=== PATIENT | male | born 1955 | race Two or more races ===

== ENCOUNTER 2024-01-15 19:23 | Inpatient (IN) | payer MEDICAID, OTHER ==
[~2024-01-15] VITALS: Ht 170.2 cm; Wt 100.0 kg
[2024-01-15 19:52] LABS: Basophils # (auto) 0 10 ^3/uL (0-0.2); Basophils % (auto) 0.5 % (0.0-2.0); Eosinophils # (auto) 0.1 10 ^3/uL (0-0.8); Eosinophils % (auto) 1.5 % (0.0-7.0); Hematocrit 44.4 % (41.0-53.0); Hemoglobin 14.7 g/dL (13.5-17.5); Lymphocytes # (auto) 2.4 10 ^3/uL (0.4-5.4); Lymphocytes % (auto) 42.7 % (10.0-50.0); Mean Corpuscular Hemoglobin 29.1 pg (28.0-32.0); Mean Corpuscular Hgb Conc. 33.2 g/dL (32.0-36.0); Mean Corpuscular Volume 87.7 fL (80.0-100.0); Monocytes # (auto) 0.5 10 ^3/uL (0-1.3); Neutrophils # (auto) 2.6 10 ^3/uL (1.6-8.6); Neutrophils % (auto) 46.3 % (37.0-80.0); Nucleated Red Blood Cells % 0.1 %; Red Blood Cells 5.06 10^6/uL (4.5-5.90); White Blood Cell 5.5 10^3/uL (4.4-10.8)
[2024-01-15 20:17] LABS: Alanine Aminotransferase 32 U/L (7-40); Albumin 4.1 g/dL (3.2-4.8); Alkaline Phosphatase 151 U/L (46-116); Anion Gap 9 (5-15); Aspartate Aminotransferase 47 U/L (13-40); BUN/Creatinine Ratio 7.2 (10.0-20.0); Bilirubin, Total 0.6 mg/dL (0.2-1.0); Blood Urea Nitrogen 6 mg/dL (9-23); Calcium 9.3 mg/dL (8.7-10.4); Carbon Dioxide 21 mmol/L (20-30); Chloride 101 mmol/L (98-107); Glucose 263 mg/dL (74-106); Potassium 3.2 mmol/L (3.5-5.1); Sodium 131 mmol/L (136-145); Total Protein 7.5 g/dL (5.7-8.2)
[2024-01-15 20:45] LABS: Blood Alcohol 572.4 mg/dL (<10)
[2024-01-15 21:09] LABS: Amphetamine Screen, Urine Neg (NEGATIVE); Barbiturate Scree,Urine Neg (NEGATIVE); Benzodiazephine Screen, Urine Pos (NEGATIVE); Cannabinoid Screen, Urine Neg (NEGATIVE); Cocaine Screen, Urine Neg (NEGATIVE); Opiate Scree,Urine Neg (NEGATIVE); Phencyclidine Screen, Urine Neg (NEGATIVE)
[2024-01-15 22:00] VITALS: RESP 10; O2SAT 97
[2024-01-16] MEDS ORDERED: ONDANSETRON HCL 4 MG/2 ML VIAL IV PRN (00:15)
[2024-01-16] MEDS ORDERED: DEXTROSE (50%) 50ML SYRG IV PRN (00:15)
[2024-01-16] MEDS ORDERED: chlordiazePOXIDE HCL 25 MG CAP PO PRN (00:15)
[2024-01-16] MEDS ORDERED: traMADol HCL 50 MG TAB PO PRN (00:15)
[2024-01-16] MEDS: ACCU-CHEK COMFORT CURVE STRIP VI SCH (06:27)
[2024-01-16] MEDS: InsuLIN REG 1unit/0.01ml Soln (100units/ml) SC SCH (06:29)
[2024-01-16 07:20] VITALS: PULSE 90; RESP 18; O2SAT 100
[2024-01-16] MEDS: SPIRONOLACTONE 25 MG TAB PO SCH (09:57)
[2024-01-16] MEDS: LACTULOSE 20Gm/30ML SOLN PO SCH (09:57)
[2024-01-16] MEDS: LOSARTAN POTASSIUM 25 MG TAB PO SCH (10:03)
[2024-01-16] MEDS: POTASSIUM CHL 20 Meq TABLET PO ONE (15:21)
[2024-01-16] MEDS: TAMSULOSIN HYDROCHLORIDE 0.4 MG CAP PO SCH (18:02)
[2024-01-16] MEDS: FOLIC ACID 1 MG, MAGNESIUM SULF SDV 50% 8 MEQ, MULTIPLE VITAMIN 10 ML, THIAMINE INJ 100... INJ SCH (18:06)
[2024-01-17 06:38] LABS: Alanine Aminotransferase 30 U/L (7-40); Albumin 3.9 g/dL (3.2-4.8); Alkaline Phosphatase 163 U/L (46-116); Anion Gap 8 (5-15); Aspartate Aminotransferase 44 U/L (13-40); BUN/Creatinine Ratio 7.8 (10.0-20.0); Bilirubin, Total 0.7 mg/dL (0.2-1.0); Blood Urea Nitrogen 12 mg/dL (9-23); Calcium 9.4 mg/dL (8.7-10.4); Carbon Dioxide 22 mmol/L (20-30); Chloride 105 mmol/L (98-107); Glucose 261 mg/dL (74-106); Magnesium 1.5 mg/dL (1.6-2.6); Potassium 4.4 mmol/L (3.5-5.1); Sodium 135 mmol/L (136-145); Total Protein 7.3 g/dL (5.7-8.2)
[2024-01-17 06:59] LABS: Basophils # (auto) 0 10 ^3/uL (0-0.2); Basophils % (auto) 0.4 % (0.0-2.0); Eosinophils # (auto) 0 10 ^3/uL (0-0.8); Eosinophils % (auto) 0.7 % (0.0-7.0); Hematocrit 45.1 % (41.0-53.0); Hemoglobin 14.6 g/dL (13.5-17.5); Lymphocytes % (auto) 20.9 % (10.0-50.0); Mean Corpuscular Hemoglobin 28.7 pg (28.0-32.0); Mean Corpuscular Hgb Conc. 32.4 g/dL (32.0-36.0); Mean Corpuscular Volume 88.4 fL (80.0-100.0); Monocytes # (auto) 0.6 10 ^3/uL (0-1.3); Monocytes % (auto) 13.4 % (0.0-12.0); Neutrophils # (auto) 3.1 10 ^3/uL (1.6-8.6); Neutrophils % (auto) 64.6 % (37.0-80.0); Nucleated Red Blood Cells % 0.2 %; Red Cell Distribution Width 15.7 % (11.8-14.3); White Blood Cell 4.9 10^3/uL (4.4-10.8)
[2024-01-17 07:30] VITALS: PULSE 92; RESP 12; O2SAT 98
[2024-01-17] MEDS: SODIUM CHLORIDE 0.9% 1,000 ML IV SCH (08:45)
[2024-01-17] MEDS: SODIUM CHLORIDE 0.9% 1,000 ML IV ONE (08:45)
[2024-01-17] MEDS: cloNIDine HCL 0.1 MG TAB ONE (18:13)
[2024-01-17] MEDS: ACETAMINOPHEN 325 MG TAB PO PRN (18:13)
[2024-01-17] MEDS: cloNIDine HCL 0.1 MG TAB PO PRN (18:13)
[2024-01-17 19:43] VITALS: PULSE 86; RESP 17; O2SAT 98
[2024-01-17 22:54] VITALS: PULSE 85
[2024-01-17 23:22] VITALS: BP 157/79; PULSE 83; RESP 18; TEMP 98; O2SAT 98
[2024-01-18 01:00] VITALS: BP 143/82; PULSE 77; RESP 18; TEMP 97.6; O2SAT 99
[2024-01-18 05:00] VITALS: BP 169/100; PULSE 79; RESP 18; TEMP 97.3; O2SAT 98
[2024-01-18 05:55] LABS: Basophils # (auto) 0 10 ^3/uL (0-0.2); Basophils % (auto) 0.7 % (0.0-2.0); Eosinophils # (auto) 0.1 10 ^3/uL (0-0.8); Eosinophils % (auto) 3.8 % (0.0-7.0); Hematocrit 41.7 % (41.0-53.0); Hemoglobin 13.8 g/dL (13.5-17.5); Lymphocytes # (auto) 0.8 10 ^3/uL (0.4-5.4); Lymphocytes % (auto) 28.9 % (10.0-50.0); Mean Corpuscular Hemoglobin 29.3 pg (28.0-32.0); Mean Corpuscular Volume 88.7 fL (80.0-100.0); Monocytes # (auto) 0.3 10 ^3/uL (0-1.3); Monocytes % (auto) 10.5 % (0.0-12.0); Neutrophils # (auto) 1.5 10 ^3/uL (1.6-8.6); Neutrophils % (auto) 56.1 % (37.0-80.0); Nucleated Red Blood Cells % 0.1 %; Red Cell Distribution Width 14.9 % (11.8-14.3); White Blood Cell 2.7 10^3/uL (4.4-10.8)
[2024-01-18 06:01] LABS: Chloride 108 mmol/L (98-107); Potassium 4.2 mmol/L (3.5-5.1); Sodium 136 mmol/L (136-145)
[2024-01-18 06:02] LABS: Anion Gap 7 (5-15); Calcium 8.8 mg/dL (8.7-10.4); Carbon Dioxide 21 mmol/L (20-30)
[2024-01-18 06:07] LABS: BUN/Creatinine Ratio 14.6 (10.0-20.0); Blood Urea Nitrogen 15 mg/dL (9-23); Glucose 270 mg/dL (74-106); Magnesium 1.7 mg/dL (1.6-2.6)
[2024-01-18 09:00] VITALS: BP 163/96; PULSE 75; RESP 18; TEMP 98; O2SAT 97
[2024-01-18] MEDS ORDERED: FOLI-119 PO (12:33)
[2024-01-18] MEDS ORDERED: THIA100T13 PO (12:33)
[2024-01-18] MEDS ORDERED: LOSA-534 PO (12:33)
[2024-01-18] MEDS ORDERED: MULTTAB99 GT (12:33)
[2024-01-18] MEDS ORDERED: ATEN-60 PO (12:33)
[2024-01-18 13:00] VITALS: BP 162/97; PULSE 79; RESP 20; TEMP 98; O2SAT 97
[2024-01-18] MEDS: ATENOLOL 25 MG TAB PO ONE (15:07)
[2024-01-18] MEDS: LOSARTAN POTASSIUM 25 MG TAB PO ONE (15:08)
[2024-01-18 17:00] VITALS: BP 168/97; PULSE 69; RESP 18; TEMP 98; O2SAT 99
== END 2024-01-18 19:00 | disposition home or self-care (01) | DRG 816 ==
LOC: ER 19:23 → EDBD 19:23 → OVERFLOW 01-16 00:13 → WEST WING 01-17 22:49 → TELE-WESTW 01-17 22:50
PROVIDERS: ADMIT Nurse Practitioner; ATTEND Internal Medicine Geriatric Medicine
DX: T51.91XA Toxic effect of unspecified alcohol, accidental (unintentional), initial encounter (principal); G93.41 Metabolic encephalopathy; N17.9 Acute kidney failure, unspecified; K74.60 Unspecified cirrhosis of liver; E11.9 Type 2 diabetes mellitus without complications; F10.129 Alcohol abuse with intoxication, unspecified; F17.210 Nicotine dependence, cigarettes, uncomplicated; I10 Essential (primary) hypertension; Y90.9 Presence of alcohol in blood, level not specified; S02.2XXA Fracture of nasal bones, initial encounter for closed fracture; F14.90 Cocaine use, unspecified, uncomplicated; W18.39XA Other fall on same level, initial encounter; Y93.89 Activity, other specified; Y92.89 Other specified places as the place of occurrence of the external cause; Y99.8 Other external cause status
CPT/HCPCS: 36415; 70450; 70486; 72125; 80048; 80053; 80307; 80320; 82140; 82962; 83735; 85025; 87040; 93005; 99291; G0378; J1815

== ENCOUNTER 2025-07-03 09:41 | Emergency (ER) | payer MEDICAID ==
[~2025-07-03] VITALS: Ht 167.6 cm; Wt 76.0 kg
[~2025-07-03 09:41] MED LIST: ATEN-60 PO; FOLI-119 PO; LOSA-534 PO; MULTTAB99 GT; THIA100T13 PO
[2025-07-03] MEDS ORDERED: BACDST PO (10:38)
--- NOTE | 2025-07-03 10:52 | ED.PDOC ---
History of Present Illness HPI Comments A 70 YEAR OLD MALE PRESENTS TO THE ED WITH COMPLAINT OF FLYNN CATHETER DISCOMFORT. PATIENT REPORTS HAVING FLYNN PLACED WITH LEG BAG 20 DAYS AGO DUE TO UA RETENTION AND STATES HE WANTS IT TO BE OUT GIVEN GROIN PAIN. PATIENT HAS URINE OUTPUT AND DENIES DYSURIA, HEMATURIA, URGENCY OR FREQUENCY. PATIENT MENTIONS IF HE HAS UA RETENTION AGAIN HE WILL COME TO THE ED OR F/U WITH PCP TO PLACE ANOTHER FLYNN. PATIENT DENIES FEVER, CHILLS, SHORTNESS OF BREATH, CHEST PAIN, ABDOMINAL PAIN, NAUSEA, VOMITING, HEADACHE, OR OTHER COMPLAINTS. NO OTHER SYMPTOMS OR MODIFYING FACTORS AT THIS TIME. PATIENT IS ALERT, ORIENTED X 4, AND HAS STEADY GAIT. Chief Complaint: Urinary Time Seen by MD: 10:30 Reviewed Notes: Nurses Notes, Medications, Allergies Allergies: Coded Allergies: NO KNOWN ALLERGIES (Unverified , 01/15/24) Home Meds Active Scripts Sulfamethoxazole W/Trimethopri (Bactrim Ds Tablet) 1 Tab Tb, 1 TAB PO BID for 10 Days, #20 TAB Prov:HECTOR HERNANDEZ 07/03/25 Multiple Vitamin (Mvi Tab) 1 Tab Tb, 1 TAB GT DAILY, #30 TAB Prov:ELIOT PAULINO MD 01/18/24 Folic Acid (Folic Acid) 1 Mg Tab, 1 MG PO DAILY, #30 TAB Prov:ELIOT PAULINO MD 01/18/24 Thiamine HCl (Thiamine Hydrochloride) 100 Mg Tab, 100 MG PO DAILY for 30 Days, #30 TAB Prov:ELIOT PAULINO MD 01/18/24 Losartan Potassium (Losartan Potassium) 50 Mg Tab, 1 TAB PO DAILY, #30 TAB 5 Refills Prov:ELIOT PAULINO MD 01/18/24 Atenolol (Atenolol) 25 Mg Tab, 1 TAB PO DAILY, #30 TAB 5 Refills Prov:ELIOT PAULINO MD 01/18/24 Information Source: Patient Mode of Arrival: Ambulatory Severity: Mild Timing: Days Duration: Since onset Medication Refill: For: Other (REQUESTS FLYNN CATHETER REMOVAL ) Past Medical History PAST MEDICAL HISTORY: Liver Past Medical History (Other): BPH Surgical History: Denies all surgeries Family History Family History: No family hx of Cancer, No family hx of DM, No family hx of Heart harper Social History Smoker: Cigarettes Alcohol: Heavy Drugs: Cocaine Lives In: Home Constitutional: denies: chills, diaphoresis, fatigue, fever, malaise, sweats, weakness, others EENTM: denies: blurred vision, double vision, ear bleeding, ear discharge, ear drainage, ear pain, ear ringing, eye pain, eye redness, hearing loss, mouth pain, mouth swelling, nasal discharge, nose bleeding, nose congestion, nose pain, photophobia, tearing, throat pain, throat swelling, voice changes, others Respiratory: denies: cough, hemoptysis, orthopnea, SOB at rest, shortness of breath, SOB with excertion, stridor, wheezing, others Cardiovascular: denies: chest pain, dizzy spells, diaphoresis, Dyspnea on exertion, edema, irregular heart beat, left arm pain, lightheadedness, palpitations, PND, syncope, others Gastrointestinal: denies: abdomen distended, abdominal pain, blood streaked bowels, constipated, diarrhea, dysphagia, difficulty swallowing, hematemesis, melena, nausea, poor appetite, poor fluid intake, rectal bleeding, rectal pain, vomiting, others Genitourinary: denies: burning, dysuria, flank pain, frequency, hematuria, incontinence, penile discharge, penile sore, pain, testicle pain, testicle swelling, urgency, others Neurological: denies: dizziness, fainting, headache, left sided numbness, left sided weakness, numbness, paresthesia, pre-existing deficit, right sided numbness, right sided weakness, seizure, speech problems, tingling, tremors, weakness, others Musculoskeletal: denies: back pain, gout, joint pain, joint swelling, muscle pain, muscle stiffness, neck pain, others Integumetry: denies: bruises, change in color, change in hair/nails, dryness, laceration, lesions, lumps, rash, wounds, others Allergic/Immunocompromised: denies: Difficulty Healing, Frequent Infections, Hives, Itching, others Hematologic/Lymphatic: denies: anemia, blood clots, easy bleeding, easy bruising, swollen glands, others Endocrine: denies: excessive hunger, excessive sweating, excessive thirst, excessive urination, flushing, intolerance to cold, intolerance to heat, unexplained weight gain, unexplained weight loss, others Psychiatric: denies: anxiety, bipolar disorder, depression, hopeless, panic d isorder, schizophrenia, sleepless, suicidal, others All Other Systems: Reviewed and Negative Physical Exam General Appearance: No Apparent Distress, Normal HEENT: Normal ENT Inspection, PERRL/EOMI, Pharynx Normal, TMs Normal Neck: Full Range of Motion, Non-Tender, Normal, Normal Inspection Respiratory: Chest Non-Tender, Lungs Clear, No Accessory Muscle Use, No Respiratory Distress, Normal Breath Sounds Cardiovascular: No Edema, No JVD, No Murmur, No Gallop, Normal Peripheral Pulses, Regular Rate/Rhythm Breast Exam: Deferred Gastrointestinal: No Organomegaly, Non Tender, No Pulsatile Mass, Normal Bowel Sounds, Soft Genitalia: Deferred Pelvic: Deferred Rectal: Deferred Extremities: No calf tenderness, Normal capillary refill, Normal inspection, Normal range of motion, Non-tender, No pedal edema Musculoskeletal : Apperance: Normal Neurologic: Alert, calibration engineer II-XII nml as Tested, No Motor Deficits, Normal Affect, Normal Mood, No Sensory Deficits Cerebellar Function: Normal Reflexes: Normal Skin: Dry, Normal Color, Warm Peripheral Pulses: 2+ carotid (R), 2+ carotid (L) Lymphatic: No Adenopathy Was a procedure done? Was a procedure done?: No Differential Dx Considerations may include: FLYNN CATHETER REMOVAL X-Ray, Labs, Meds, VS Vital Signs Date Time Temp Pulse Resp B/P (MAP) Pulse Ox O2 Delivery O2 Flow Rate FiO2 07/03/25 10:56 97.9 81 15 95/61 (72) 98 97.9 07/03/25 10:56 81 15 98 Room Air 07/03/25 09:47 97.9 81 15 95/61 98 97.9 X-Ray, Labs, Meds, VS Comment EXTERNAL MEDICAL RECORDS REVIEWED: [NONE] INDEPENDENT HISTORIANS: [NONE] SOCIAL DETERMINANTS OF HEALTH: [NONE] LABS ORDERED: NONE REVIEWED AND INTERPRETED RESULTS: NONE IMAGING ORDERED: NONE TREATMENTS ORDERED: PROCEDURES PERFORMED: NONE CRITICAL CARE TIME: NONE I HAVE DISCUSSED THE PATIENT WITH THE ATTENDING PHYSICIAN, DR. SNOWDEN, HE AGREES WITH THE PATIENT'S PLAN OF CARE AND DISPOSITION. BASED ON HISTORY OF PRESENT ILLNESS, AND PHYSICAL EXAM, PATIENT WILL BE DI SCHARGED HOME. DISCUSSED PLAN FOR DISCHARGE HOME WITH RX BACTRIM. MEDICATION WARNINGS GIVEN. PATIENT MENTIONS IF HE HAS UA RETENTION AGAIN HE WILL COME TO THE ED OR F/U WITH PCP TO PLACE ANOTHER FLYNN. SHARED DECISION MAKING: DISCUSSED WITH PATIENT THAT THEIR WORKUP WAS NORMAL. PATIENT INSTRUCTED TO FOLLOW UP WITH PRIMARY CARE PROVIDER IN 1-2 DAYS FOR RE- EVALUATION OF SYMPTOMS. PATIENT VERBALIZES UNDERSTANDING TO RETURN TO ED FOR NEW OR WORSENING SYMPTOMS OR IF FOLLOW UP WITH PCP CANNOT BE OBTAINED. PATIENT FEELS COMFORTABLE GOING HOME AT THIS TIME. ALL QUESTIONS ADDRESSED AT TIME OF DISCHARGE. Time of 1ST Reevaluation: 11:05 Reevaluation 1ST: Improved Patient Education/Counseling: Diagnosis, Treatment, Need For Follow Up Family Education/Counseling: Diagnosis, Treatment, Need For Follow Up Medical Screening: No EMC Exist At This Time SEPSIS Sepsis Screen Date sepsis recognized/suspect: Jul 03, 2025 Time Sepsis recognized/suspect: 0952 Recent Procedure: No On Antibiotic Therapy: No Respiratory Rate >20: No Heart Rate >90: No Temp<36 C (96.8 F) or >38.3 C: No SBP <90 or MAP <65 mmHG: No New Acute Mental Status Change: No Is the patient on CPAP, BIPAP,: No Physician Orders Urinalysis (07/03/25 10:36) Vital Signs Date Time Temp Pulse Resp B/P (MAP) Pulse Ox O2 Delivery O2 Flow Rate FiO2 07/03/25 10:56 97.9 81 15 95/61 (72) 98 97.9 07/03/25 10:56 81 15 98 Room Air 07/03/25 09:47 97.9 81 15 95/61 98 97.9 Departure 1 Departure Time of Disposition: 11:05 Impression: Primary Impression: Encounter for Flynn catheter removal Additional Impression: UTI (urinary tract infection) Qualified Codes: T83.511A - Infection and inflammatory reaction due to indwelling urethral catheter, initial encounter; N39.0 - Urinary tract infection, site not specified Disposition: 01 HOME / SELF CARE / HOMELESS Condition: Stable Additional Instructions: FOLLOW-UP WITH PCP IN 1 TO 2 DAYS. TAKE MEDICATIONS PRESCRIBED. RETURN TO ED FOR ANY NEW OR WORSENING SYMPTOMS. e-Prescriptions Sulfamethoxazole W/Trimethopri (Bactrim Ds Tablet) 1 Tab Tb 1 TAB PO BID for 10 Days, #20 TAB Prov: HECTOR HERNANDEZ 07/03/25 Discharged With: Self Critical Care Note Critical Care Time?: No Stability Stability form required: No I personally scribed for HECTOR HERNANDEZ ([email or web address]) on 07/03/25 at 10:52. Electronically submitted by Shereen Cervantes ([email or web address]). HECTOR HERNANDEZ Jul 03, 2025 10:52
[2025-07-03 10:56] VITALS: BP 95/61; PULSE 81; RESP 15; TEMP 97.9; O2SAT 98
== END 2025-07-03 10:59 | disposition home or self-care (01) ==
LOC: ER 09:41
DX: N39.0 Urinary tract infection, site not specified (principal); F17.210 Nicotine dependence, cigarettes, uncomplicated; N40.0 Benign prostatic hyperplasia without lower urinary tract symptoms; Z46.6 Encounter for fitting and adjustment of urinary device; Z79.899 Other long term (current) drug therapy

== ENCOUNTER 2025-08-07 15:13 | Inpatient (IN) | payer MEDICAID ==
[~2025-08-07] VITALS: Ht 170.2 cm; Wt 66.5 kg
[~2025-08-07 15:13] MED LIST changes: +BACDST PO
[2025-08-07] MEDS: ACETAMINOPHEN 325 MG TAB PO ONE ×2 (15:23)
--- NOTE | 2025-08-07 16:27 | ED.PDOC ---
Eye-HPI HPI Comments A 70 YEAR OLD MALE PRESENTS TO THE ED WITH COMPLAINT OF SORE THROAT AND COUGH. PATIENT STATES HE HAS BEEN EXPERIENCING A COUGH AND CONGESTION FOR THE PAST 7 DAYS AND A SORE THROAT, BODY ACHES, AND ON ND OFF FEVER FOR THE PAST 3 DAYS. PATIENT DENIES SHORTNESS OF BREATH, CHEST PAIN, ABDOMINAL PAIN, NAUSEA, VOMITING, HEADACHE, OR OTHER COMPLAINTS. NO OTHER SYMPTOMS OR MODIFYING FACTORS AT THIS TIME. PATIENT IS ALERT, ORIENTED X 4, AND HAS STEADY GAIT. Chief Complaint: Flu like Time Seen by MD: 15:14 Reviewed Notes: Nurses Notes, Medications, Allergies Allergies: Coded Allergies: NO KNOWN ALLERGIES (Unverified , 01/15/24) Home Meds Active Scripts Sulfamethoxazole W/Trimethopri (Bactrim Ds Tablet) 1 Tab Tb, 1 TAB PO BID for 10 Days, #20 TAB Prov:HECTOR HERNANDEZ 07/03/25 Multiple Vitamin (Mvi Tab) 1 Tab Tb, 1 TAB GT DAILY, #30 TAB Prov:ELIOT PAULINO MD 01/18/24 Folic Acid (Folic Acid) 1 Mg Tab, 1 MG PO DAILY, #30 TAB Prov:ELIOT PAULINO MD 01/18/24 Thiamine HCl (Thiamine Hydrochloride) 100 Mg Tab, 100 MG PO DAILY for 30 Days, #30 TAB Prov:ELIOT PAULINO MD 01/18/24 Losartan Potassium (Losartan Potassium) 50 Mg Tab, 1 TAB PO DAILY, #30 TAB 5 Refills Prov:ELIOT PAULINO MD 01/18/24 Atenolol (Atenolol) 25 Mg Tab, 1 TAB PO DAILY, #30 TAB 5 Refills Prov:ELIOT PAULINO MD 01/18/24 Information Source: Patient Mode of Arrival: Ambulatory Timing: Days Duration: Since onset, Days Prehospital treatment: None Quality: Pain, Red Lids: Normal Conjunctiva: Normal Cornea: Normal Pupils: Normal EOM: Normal Fundus: Normal Slit lamp exam: Normal Anterior chamber: Normal Mouth Location: Pharynx Mouth: Normal ENT Ear Exam: Normal, Normal, Normal Nose: Normal Sinuses: Normal Oropharynx: Tonsillar hypertrophy, Red Onset: Spontaneous Throat Exposed to: None History of: None Last Tetanus: Unknown Modifying factors: Nothing Associated signs and symptoms: Fever, Chills, Nasal Symptoms, Sore Throat, Muffled Voice Past Medical History PAST MEDICAL HISTORY: DM, HTN, Liver Surgical History: Denies all surgeries Family History Family History: No family hx of Cancer, No family hx of DM, No family hx of Heart harper Social History Smoker: Cigarettes Alcohol: Heavy Drugs: Cocaine Lives In: Home Constitutional: reports: chills, fever; denies: diaphoresis, fatigue, malaise, sweats, weakness, others EENTM: reports: nose congestion, throat pain, throat swelling; denies: blurred vision, double vision, ear bleeding, ear discharge, ear drainage, ear pain, ear ringing, eye pain, eye redness, hearing loss, mouth pain, mouth swelling, nasal discharge, nose bleeding, nose pain, photophobia, tearing, voice changes, others Respiratory: reports: cough; denies: hemoptysis, orthopnea, SOB at rest, shortness of breath, SOB with excertion, stridor, wheezing, others Cardiovascular: denies: chest pain, dizzy spells, diaphoresis, Dyspnea on exertion, edema, irregular heart beat, left arm pain, lightheadedness, palpitations, PND, syncope, others Gastrointestinal: denies: abdomen distended, abdominal pain, blood streaked bowels, constipated, diarrhea, dysphagia, difficulty swallowing, hematemesis, melena, nausea, poor appetite, poor fluid intake, rectal bleeding, rectal pain, vomiting, others Genitourinary: denies: burning, dysuria, flank pain, frequency, hematuria, incontinence, penile discharge, penile sore, pain, testicle pain, testicle swelling, urgency, others Neurological: denies: dizziness, fainting, headache, left sided numbness, left sided weakness, numbness, paresthesia, pre-existing deficit, right sided numbness, right sided weakness, seizure, speech problems, tingling, tremors, weakness, others Musculoskeletal: denies: back pain, gout, joint pain, joint swelling, muscle pain, muscle stiffness, neck pain, others Integumetry: denies: bruises, change in color, change in hair/nails, dryness, laceration, lesions, lumps, rash, wounds, others Allergic/Immunocompromised: denies: Difficulty Healing, Frequent Infections, Hives, Itching, others Hematologic/Lymphatic: denies: anemia, blood clots, easy bleeding, easy bruising, swollen glands, others Endocrine: denies: excessive hunger, excessive sweating, excessive thirst, excessive urination, flushing, intolerance to cold, intolerance to heat, unexplained weight gain, unexplained weight loss, others Psychiatric: denies: anxiety, bipolar disorder, depression, hopeless, panic disorder, schizophrenia, sleepless, suicidal, others All Other Systems: Reviewed and Negative Physical Exam General Appearance: No Apparent Distress, Normal HEENT: PERRL/EOMI, Pharyngeal Erythema (TONSILLAR SWELLING, NO EXUDATES. ), TMs Normal Neck: Full Range of Motion, Non-Tender, Normal, Normal Inspection Respiratory: Chest Non-Tender, Expiration, No Accessory Muscle Use, No R espiratory Distress, Rhonchi Cardiovascular: No Edema, No JVD, No Murmur, No Gallop, Normal Peripheral Pul ses, Regular Rate/Rhythm Breast Exam: Deferred Gastrointestinal: No Organomegaly, Non Tender, No Pulsatile Mass, Normal Bowel Sounds, Soft Genitalia: Deferred Pelvic: Deferred Rectal: Deferred Extremities: No calf tenderness, Normal capillary refill, Normal inspection, Normal range of motion, Non-tender, No pedal edema Musculoskeletal : Apperance: Normal Neurologic: Alert, hadoop analyst II-XII nml as Tested, No Motor Deficits, Normal Affect, Normal Mood, No Sensory Deficits Cerebellar Function: Normal Reflexes: Normal Skin: Dry, Normal Color, Warm Peripheral Pulses: 2+ carotid (R), 2+ carotid (L) Lymphatic: No Adenopathy Was a procedure done? Was a procedure done?: No EENT DIFF Eye: N/A Ear: Otitis Media, Pharyngitis, Sinusitis Nose: N/A Mouth: N/A Sore Throat: Pharyngitis, Streptococcal, Viral Pharyngitis, URI X-Ray, Labs, Meds, VS Vital Signs Date Time Temp Pulse Resp B/P (MAP) Pulse Ox O2 Delivery O2 Flow Rate FiO2 08/07/25 16:23 99.9 08/07/25 15:23 100.6 08/07/25 15:14 100.6 111 18 148/87 99 100.6 Current Medications Medications (Trade) Dose Ordered Sig/Sulma Route Start Time Stop Time Status Last Admin Acetaminophen (Tylenol Tablet) 650 mg ONCE ONCE PO 08/07/25 15:30 08/07/25 15:31 DC 08/07/25 15:23 Ceftriaxone Sodium (Rocephin) 1,000 mg ONCE ONCE IM 08/07/25 16:30 08/07/25 16:31 DC 08/07/25 16:36 XY CHEST TWO VIEWS ROUTINE CLINICAL HISTORY: COUGH COMPARISON: None TECHNIQUE: Frontal and lateral view of the chest was obtained FINDINGS: Lines and Tubes: None Lungs: No focal consolidation. Pleura: No effusion. No pneumothorax. Cardiomediastinal contours: Unremarkable Bones: Bony spondylosis throughout the thoracic spine. IMPRESSION: 1. No acute cardiopulmonary disease. ATED BY: MELODY NIELSON Jr., DO DICTATED DATE/TIME: 08/07/251626 SIGNED BY: MELODY NIELSON Jr., SIGNED DATE/TIME: 08/07/251626 CC: X-Ray, Labs, Meds, VS Comment EXTERNAL MEDICAL RECORDS REVIEWED: [NONE] INDEPENDENT HISTORIANS: [NONE] SOCIAL DETERMINANTS OF HEALTH: [NONE] LABS ORDERED: NONE REVIEWED AND INTERPRETED RESULTS: NONE IMAGING ORDERED: XR CHEST: [INTERPRETED BY ME. NO ACUTE FINDINGS. NO PNEUMONIA. NO CONSOLIDATIONS. NO INFILTRATES. PENDING RADIOLOGIST REPORT. ] TREATMENTS ORDERED: TYLENOL 1 G P.O., ROCEPHIN 1 G IM PROCEDURES PERFORMED: NONE CRITICAL CARE TIME: NONE I HAVE DISCUSSED THE PATIENT WITH THE ATTENDING PHYSICIAN DR. SMITH AND HE AGREES WITH THE PATIENT'S PLAN OF CARE AND DISPOSITION. BASED ON HISTORY OF PRESENT ILLNESS, AND PHYSICAL EXAM, PATIENT WILL BE DISCHARGED HOME. DISCUSSED PLAN FOR DISCHARGE HOME WITH RX [AZITHROMYCIN, PHENERGAN DM AND TYLENOL 650MG]. MEDICATION WARNINGS GIVEN. SHARED DECISION MAKING: DISCUSSED WITH PATIENT THAT THEIR WORKUP WAS NORMAL. PATIENT INSTRUCTED TO FOLLOW UP WITH PRIMARY CARE PROVIDER IN 1-2 DAYS FOR RE- EVALUATION OF SYMPTOMS. PATIENT VERBALIZES UNDERSTANDING TO RETURN TO ED FOR NEW OR WORSENING SYMPTOMS OR IF FOLLOW UP WITH PCP CANNOT BE OBTAINED. PATIENT FEELS COMFORTABLE GOING HOME AT THIS TIME. ALL QUESTIONS ADDRESSED AT TIME OF DISCHARGE. Images Reviewed?: Images reviewed and evaluated by me Time of 1ST Reevaluation: 17:00 Reevaluation 1ST: Improved Patient Education/Counseling: Diagnosis, Treatment, Need For Follow Up Family Education/Counseling: Diagnosis, Treatment, Need For Follow Up Medical Screening: No EMC Exist At This Time SEPSIS Sepsis Screen Date sepsis recognized/suspect: Aug 07, 2025 Time Sepsis recognized/suspect: 1517 Recent Procedure: No On Antibiotic Therapy: No Respiratory Rate >20: No Heart Rate >90: Yes Temp<36 C (96.8 F) or >38.3 C: No SBP <90 or MAP <65 mmHG: No New Acute Mental Status Change: No Is the patient on CPAP, BIPAP,: No Physician Orders Chest Two Views Routine (08/07/25 15:23) Complete Blood Count (08/07/25 17:03) Basic Metabolic Panel (08/07/25 17:03) Blood Culture (08/07/25 17:03) Lactic Acid W/ Reflex Order (08/07/25 17:03) Troponin-I Hs (08/07/25 17:03) Heplock Iv (08/07/25 ) NS (08/07/25 17:15) Covid19 Antigen Silvana (08/07/25 ) Rapid Influenza A&B (08/07/25 17:03) Rapid Strep Screen - Throat (08/07/25 17:03) Vital Signs Date Time Temp Pulse Resp B/P (MAP) Pulse Ox O2 Delivery O2 Flow Rate FiO2 08/07/25 16:23 99.9 08/07/25 15:23 100.6 08/07/25 15:14 100.6 111 18 148/87 99 100.6 Medications Medications Dose Ordered Sig/Sulma Route Start Time Stop Time Status Last Admin Dose Admin Acetaminophen 650 mg ONCE ONCE PO 08/07/25 15:30 08/07/25 15:31 DC 08/07/25 15:23 Ceftriaxone Sodium 1,000 mg ONCE ONCE IM 08/07/25 16:30 08/07/25 16:31 DC 08/07/25 16:36 Departure 1 Departure Time of Disposition: 17:00 Impression: Primary Impression: Acute tonsillitis Qualified Codes: J03.90 - Acute tonsillitis, unspecified Additional Impression: Acute bronchitis Qualified Codes: J20.9 - Acute bronchitis, unspecified Disposition: 01 HOME / SELF CARE / HOMELESS Condition: Stable Additional Instructions: FOLLOW-UP WITH PCP IN 1 TO 2 DAYS. TAKE MEDICATIONS PRESCRIBED. RETURN TO ED FOR ANY NEW OR WORSENING SYMPTOMS. Discharged With: Self Critical Care Note Critical Care Time?: No Stability Stability form required: No I personally scribed for HECTOR HERNANDEZ ([email or web address]) on 08/07/25 at 16:27. Electronically submitted by Emir Culp ([email or web address]). I personally scribed for HECTOR HERNANDEZ ([email or web address]) on 08/07/25 at 16:28. Electronically submitted by Emir Culp ([email or web address]). I personally scribed for HECTOR HERNANDEZ ([email or web address]) on 08/07/25 at 16:30. Electronically submitted by Emir Culp ([email or web address]). I personally scribed for SHAKEEL SMITH MD ([email or web address]) on 08/07/25 at 17:03. Electronically submitted by Emir Culp ([email or web address]). HECTOR HERNANDEZ Aug 07, 2025 16:27 SHAKEEL SMITH MD Aug 07, 2025 17:03
[2025-08-07] MEDS: cefTRIAXone SOD 1,000 MG VL IM ONE (16:36)
[2025-08-07] MEDS ORDERED: AZIT500T66 PO (16:38)
[2025-08-07] MEDS ORDERED: ACET-1080 PO (16:42)
[2025-08-07] MEDS ORDERED: PROM1SOL4 PO (16:42)
[2025-08-07 17:16] VITALS: PULSE 92; RESP 25; O2SAT 96
[2025-08-07] MEDS: SODIUM CHLORIDE 0.9% 2,000 ML IV ONE (17:21)
--- NOTE | 2025-08-07 17:22 | ED.PDOC ---
SOB-HPI HPI Comments A 70 YEAR OLD MALE PRESENTS TO THE ED WITH COMPLAINT OF SORE THROAT AND COUGH. PATIENT STATES HE HAS BEEN EXPERIENCING A COUGH AND CONGESTION FOR THE PAST 7 DAYS AND A SORE THROAT, FEVER, AND HICCUPS FOR THE PAST 3 DAYS. PATIENT DENIES SHORTNESS OF BREATH, CHEST PAIN, ABDOMINAL PAIN, NAUSEA, VOMITING, HEADACHE, OR OTHER COMPLAINTS. NO OTHER SYMPTOMS OR MODIFYING FACTORS AT THIS TIME. PATIENT IS ALERT, ORIENTED X 4, AND HAS STEADY GAIT. Chief Complaint: Flu like Time Seen by MD: 15:14 Reviewed notes: Nurses Notes, Medications, Allergies Information Source: Patient Mode of Arrival: Ambulatory Severity: Moderate Timing: Days Duration: Since onset, Days Context: Spontaneous Onset PE Risk Factors: None History of: None Prehospital treatment: None Modifying Factors: Nothing Associated Signs and Symptoms: Fever, Cough, Nasal Congestion, Sore Throat If cough with SOB: Productive Past Medical History PAST MEDICAL HISTORY: DM, HTN, Liver Surgical History: Denies all surgeries Family History Family History: No family hx of Cancer, No family hx of DM, No family hx of Heart harper Social History Smoker: Cigarettes Alcohol: Heavy Drugs: Cocaine Lives In: Home Constitutional: reports: chills, fever; denies: diaphoresis, fatigue, malaise, sweats, weakness, others EENTM: reports: nose congestion, throat pain, throat swelling, voice changes, others (HICCUPS); denies: blurred vision, double vision, ear bleeding, ear discharge, ear drainage, ear pain, ear ringing, eye pain, eye redness, hearing loss, mouth pain, mouth swelling, nasal discharge, nose bleeding, nose pain, photophobia, tearing Respiratory: reports: cough; denies: hemoptysis, orthopnea, SOB at rest, shortness of breath, SOB with excertion, stridor, wheezing, others Cardiovascular: denies: chest pain, dizzy spells, diaphoresis, Dyspnea on exertion, edema, irregular heart beat, left arm pain, lightheadedness, palpitations, PND, syncope, others Gastrointestinal: denies: abdomen distended, abdominal pain, blood streaked bowels, constipated, diarrhea, dysphagia, difficulty swallowing, hematemesis, melena, nausea, poor appetite, poor fluid intake, rectal bleeding, rectal pain, vomiting, others Genitourinary: denies: burning, dysuria, flank pain, frequency, hematuria, incontinence, penile discharge, penile sore, pain, testicle pain, testicle swelling, urgency, others Neurological: denies: dizziness, fainting, headache, left sided numbness, left sided weakness, numbness, paresthesia, pre-existing deficit, right sided numbness, right sided weakness, seizure, speech problems, tingling, tremors, weakness, others Musculoskeletal: denies: back pain, gout, joint pain, joint swelling, muscle pain, muscle stiffness, neck pain, others Integumetry: denies: bruises, change in color, change in hair/nails, dryness, laceration, lesions, lumps, rash, wounds, others Allergic/Immunocompromised: denies: Difficulty Healing, Frequent Infections, Hives, Itching, others Hematologic/Lymphatic: denies: anemia, blood clots, easy bleeding, easy bruising, swollen glands, others Endocrine: denies: excessive hunger, excessive sweating, excessive thirst, excessive urination, flushing, intolerance to cold, intolerance to heat, unexplained weight gain, unexplained weight loss, others Psychiatric: denies: anxiety, bipolar disorder, depression, hopeless, panic disorder, schizophrenia, sleepless, suicidal, others All Other Systems: Reviewed and Negative Physical Exam General Appearance: No Apparent Distress, Normal HEENT: PERRL/EOMI, Pharyngeal Erythema (TONSILLAR SWELLING, NO EXUDATES. ), TMs Normal Neck: Full Range of Motion, Non-Tender, Normal, Normal Inspection Respiratory: Chest Non-Tender, Expiration, No Accessory Muscle Use, No Respiratory Distress, Rhonchi Cardiovascular: No Edema, No JVD, No Murmur, No Gallop, Normal Peripheral Pulses, Regular Rate/Rhythm Breast Exam: Deferred Gastrointestinal: No Organomegaly, Non Tender, No Pulsatile Mass, Normal Bowel Sounds, Soft Genitalia: Deferred Pelvic: Deferred Rectal: Deferred Extremities: No calf tenderness, Normal capillary refill, Normal inspection, Normal range of motion, Non-tender, No pedal edema Musculoskeletal : Apperance: Normal Neurologic: Alert, upholstery sewer II-XII nml as Tested, No Motor Deficits, Normal Affect, Normal Mood, No Sensory Deficits Cerebellar Function: Normal Reflexes: Normal Skin: Dry, Normal Color, Warm Peripheral Pulses: 2+ carotid (R), 2+ carotid (L) Lymphatic: No Adenopathy EKG EKG : Pulse Rate (adult): 89 [place]: Normal Cardiac Rhythm: NSR Block: None Hypertrophy: None ST: Normal Was a procedure done? Was a procedure done?: No Differential Dx Differential Diagnosis: Bronchitis, Hyponatremia, Pneumonia, Sinusitis, Allergic Rhinitis, Otitis Media, Pharyngitis, URI X-Ray, Labs, Meds, VS Vital Signs Date Time Temp Pulse Resp B/P (MAP) Pulse Ox O2 Delivery O2 Flow Rate FiO2 08/07/25 19:30 Nasal Cannula* 2 28 08/07/25 19:30 97.9 87 17 100/52 (68) 98 97.9 08/07/25 18:45 87 18 109/60 (76) 96 08/07/25 17:45 89 08/07/25 17:34 89 08/07/25 17:16 98.2 92 25 91/54 (66) 96 98.2 08/07/25 17:16 92 25 96 Room Air* 0 21 08/07/25 16:23 99.9 08/07/25 15:23 100.6 08/07/25 15:14 100.6 111 18 148/87 99 100.6 Lab Test 08/07/25 18:30 08/07/25 17:45 08/07/25 17:20 Range/Units Urine Color Colorless Yellow Urine Clarity Turbid H Clear Urine pH 5.5 5.0-9.0 Urine Specific Gilbert 1.003 1.001-1.035 Urine Protein Negative Negative Urine Ketones Negative Negative Urine Blood 1+ H Negative /uL Urine Nitrite Negative Negative Urine Bilirubin Negative Negative Urine Urobilinogen Normal Negative mg/dL Urine Leukocyte Esterase 3+ Negative /uL Urine RBC 2 0 - 3 /hpf Urine WBC Clumps Present None Seen /hpf Urine Microscopic WBC 235 H 0-3 /HPF Urine Squamous Epithelial Cells None seen <5 /hpf Urine Bacteria Few H None Seen /hpf Urine Glucose 4+ H Normal mg/dL Urine Opiates Screen Neg NEGATIVE Urine Fentanyl Screen Neg NEGATIVE Urine Barbiturates Screen Neg NEGATIVE Urine Phencyclidine Screen Neg NEGATIVE Urine Amphetamines Screen Neg NEGATIVE Urine Benzodiazepines Screen Neg NEGATIVE Urine Cocaine Screen Neg NEGATIVE Urine Cannabinoids Screen Neg NEGATIVE Influenza Type A Antigen Negative Negative Influenza Type B Antigen Negative Negative SARS-CoV-2 Antigen (Rapid) Negative NEGATIVE Group A Streptococcus Rapid Negative White Blood Count 15.4 H 4.4-10.8 10^3/uL Red Blood Count 4.61 4.5-5.90 10^6/uL Hemoglobin 13.5 13.5-17.5 g/dL Hematocrit 39.5 L 41.0-53.0 % Mean Corpuscular Volume 85.8 80.0-100.0 fL Mean Corpuscular Hemoglobin 29.2 28.0-32.0 pg Mean Corpuscular Hemoglobin Concent 34.0 32.0-36.0 g/dL Red Cell Distribution Width 14.7 H 11.8-14.3 % Platelet Count 157 140-450 10^3/uL Mean Platelet Volume 7.8 6.9-10.8 fL Neutrophils (%) (Auto) 89.8 H 37.0-80.0 % Lymphocytes (%) (Auto) 4.2 L 10.0-50.0 % Monocytes (%) (Auto) 5.6 0.0-12.0 % Eosinophils (%) (Auto) 0.1 0.0-7.0 % Basophils (%) (Auto) 0.3 0.0-2.0 % Neutrophils # (Auto) 13.9 H 1.6-8.6 10 ^3/uL Lymphocytes # (Auto) 0.6 0.4-5.4 10 ^3/uL Monocytes # (Auto) 0.9 0-1.3 10 ^3/uL Eosinophils # (Auto) 0 0-0.8 10 ^3/uL Basophils # (Auto) 0 0-0.2 10 ^3/uL Nucleated Red Blood Cells 0.0 % Sodium Level 130 L 136-145 mmol/L Potassium Level 3.1 L 3.5-5.1 mmol/L Chloride Level 98 98-107 mmol/L Carbon Dioxide Level 20 20-31 mmol/L Anion Gap 12 5-15 Blood Urea Nitrogen 24 H 9-23 mg/dL Creatinine 1.33 H 0.700-1.30 mg/dL Glomerular Filtration Rate Calc 58 >90 mL/min BUN/Creatinine Ratio 18.0 10.0-20.0 Serum Glucose 163 H 74-106 mg/dL Lactic Acid Level 1.5 0.4-2.0 mmol/L Calcium Level 8.7 8.7-10.4 mg/dL Troponin I High Sensitivity 10 </=54 ng/L Current Medications Medications (Trade) Dose Ordered Sig/Sulma Route Start Time Stop Time Status Last Admin Acetaminophen (Tylenol Tablet) 650 mg ONCE ONCE PO 08/07/25 15:30 08/07/25 15:31 DC 08/07/25 15:23 Ceftriaxone Sodium (Rocephin) 1,000 mg ONCE ONCE IM 08/07/25 16:30 08/07/25 16:31 DC 08/07/25 16:36 Sodium Chloride 2,000 ml @ 1,000 mls/hr Q2H ONCE IV 08/07/25 17:15 08/07/25 19:14 DC 08/07/25 17:21 Clindamycin Phosphate 50 ml @ 50 mls/hr ONCE ONCE IV 08/07/25 17:30 08/07/25 18:29 DC 08/07/25 17:36 Potassium Chloride (Klor-Con Tablet) 40 meq ONCE ONCE PO 08/07/25 18:15 08/07/25 18:16 DC 08/07/25 18:54 Dexamethasone Sodium Phosphate (Decadron Injection) 6 mg ONCE ONCE IV 08/07/25 19:30 08/07/25 20:36 DC 08/07/25 19:30 Sodium Chloride 1,000 ml @ 60 mls/hr [id number] IV 08/07/25 19:30 08/07/25 19:30 PATIENT: DURAN QUINONEZOACCT: [id number]: [id number] : 1955 LOC: ER ROOM / BED: / AGE / SEX: 70 / M ADM STATUS: REG ER SERVICE 1523 ORDERING PHYSICIAN: HECTOR HERNANDEZ PROCEDURE(s): CXR2 - CHEST TWO VIEWS ROUTINE REASON: COUGH ORDER NUMBER(s): [id number], ACCESSION NUMBER(s): [id number] CHEST TWO VIEWS ROUTINE CLINICAL HISTORY: COUGH COMPARISON: None TECHNIQUE: Frontal and lateral view of the chest was obtained FINDINGS: Lines and Tubes: None Lungs: No focal consolidation. Pleura: No effusion. No pneumothorax. Cardiomediastinal contours: Unremarkable Bones: Bony spondylosis throughout the thoracic spine. IMPRESSION: 1. No acute cardiopulmonary disease. ATED BY: MELODY NIELSON Jr., DO DICTATED DATE/TIME: 08/07/251626 SIGNED BY: MELODY NIELSON Jr., SIGNED DATE/TIME: 08/07/251626 CC: X-Ray, Labs, Meds, VS Comment EXTERNAL MEDICAL RECORDS REVIEWED: [NONE] INDEPENDENT HISTORIANS: [NONE] SOCIAL DETERMINANTS OF HEALTH: [NONE] LABS ORDERED: CBC, BMP, UA, LACTIC ACID W/REFLEX, BLOOD CULTURE, TROPONIN, UDS, COVID-19, INFLUENZA A/B, STREP A RAPID REVIEWED AND INTERPRETED RESULTS: PENDING IMAGING ORDERED: XR CHEST TREATMENTS ORDERED: ROCEPHIN 1G IM, TYLENOL 1 G PO, NS 2 L IV AND CLINDAMYCIN 600MG IVP PROCEDURES PERFORMED: NONE CRITICAL CARE TIME: NONE I HAVE DISCUSSED THE PATIENT WITH THE ATTENDING PHYSICIAN DR. SMITH AND HE AGREES WITH THE PATIENT'S PLAN OF CARE. 1700: UPON REASSESSMENT OF THE PATIENT'S VITALS, HIS BLOOD PRESSURE WAS NOTED TO HAVE BEEN 71/46. DUE TO THE PATIENT'S SYMPTOMS AND THE FACT IN HIS BLOOD PRESSURE WAS NOTED TO HAVE DECREASED DESPITE TREATMENT, I HAVE DETERMINED THE PATIENT NEEDS FURTHER EVALUATION FOR POSSIBLE SEPSIS, AND WE WILL NEED TO BE ADMITTED FOR FURTHER EVALUATION. THE ON-CALL HOSPITALIST WILL BE CONTACTED FOR ADMISSION OF THIS PATIENT. 175: I WENT TO REASSESS THE PATIENT MYSELF AND HIS BLOOD PRESSURE WAS NOTED TO HAVE INCREASED TO 102/59 AND PATIENT IS ALERT AND ORIENTED X4 WITH A STABLE GAIT. 1800: PATIENT CARE SIGNED OUT TO MELIZA DIEGO NP DUE TO SHIFT CHANGE. Time of 1ST Reevaluation: 18:00 Reevaluation 1ST: Unchanged Patient Education/Counseling: Diagnosis, Treatment Family Education/Counseling: Diagnosis, Treatment Assigned to Dr. MELIZA DIEGO NP Comments 1800: PATIENT CARE SIGNED OUT TO MELIZA DIEGO NP DUE TO SHIFT CHANGE. Change of Shift?: Yes SEPSIS Sepsis Screen Date sepsis recognized/suspect: Aug 07, 2025 Time Sepsis recognized/suspect: 1516 Recent Procedure: No On Antibiotic Therapy: No Respiratory Rate >20: No Heart Rate >90: Yes Temp<36 C (96.8 F) or >38.3 C: No SBP <90 or MAP <65 mmHG: No New Acute Mental Status Change: No Is the patient on CPAP, BIPAP,: No Physician Orders Chest Two Views Routine (08/07/25 15:23) Blood Culture (08/07/25 17:03) Heplock Iv (08/07/25 ) Ceftriaxone 1gm/50ml (Rocephin) (08/08/25 09:00) Glucose Blood (Accu-Chek Comfort Curve T (08/07/25 22:00) Insulin R (Human) (Insulin R) (08/07/25 22:00) Insulin R (Human) (Insulin R) (08/08/25 07:00) Dextrose 50% Syringe (08/07/25 19:30) Allergies (08/07/25 19:16) Code Status (08/07/25 19:16) Sodium Chloride 0.9% (08/07/25 19:30) Oxygen Per Hour (08/07/25 19:16) Hydrocodone-Acet 5/325mg Tab (Boron 5/32 (08/07/25 19:30) Ondansetron Hcl (Zofran) (08/07/25 19:30) Docusate Sodium Capsule (Colace Capsule) (08/07/25 19:30) Condition: Serious (08/07/25 19:16) Acetaminophen Tablet (Tylenol Tablet) (08/07/25 19:30) Bedrest With Bathroom Privileg (08/07/25 19:16) Maintain Bed Rest (08/07/25 19:16) Sequential Compression Device (08/07/25 ) Thiamine Tab (08/08/25 10:00) Folic Acid Tablet (08/08/25 10:00) Multiple Vitamin Tablet (Mvi Tab) (08/08/25 10:00) Clindamycin 600mg Iv (Cleocin Iv) (08/08/25 06:00) Vital Signs Date Time Temp Pulse Resp B/P (MAP) Pulse Ox O2 Delivery O2 Flow Rate FiO2 08/07/25 19:30 Nasal Cannula* 2 28 08/07/25 19:30 97.9 87 17 100/52 (68) 98 97.9 08/07/25 18:45 87 18 109/60 (76) 96 08/07/25 17:45 89 08/07/25 17:34 89 08/07/25 17:16 98.2 92 25 91/54 (66) 96 98.2 08/07/25 17:16 92 25 96 Room Air* 0 21 08/07/25 16:23 99.9 08/07/25 15:23 100.6 08/07/25 15:14 100.6 111 18 148/87 99 100.6 Laboratory Tests Test 08/07/25 17:20 Lactic Acid Level 1.5 mmol/L (0.4-2.0) White Blood Count 15.4 10^3/uL (4.4-10.8) H Departure 1 Departure Time of Disposition: 18:00 Impression: Primary Impression: Hypotension Qualified Codes: I95.9 - Hypotension, unspecified Additional Impressions: Acute tonsillitis Qualified Codes: J03.90 - Acute tonsillitis, unspecified Hypokalemia UTI (urinary tract infection) Qualified Codes: N39.0 - Urinary tract infection, site not specified Disposition: ADMITTED INPATIENT Condition: Serious Critical Care Note Critical Care Time?: No Stability Stability form required: Yes Unstable for transfer: Requires medication, ED Physician Assesment, Possible rapid decline Heart Score Heart Score: Heart Score Response (Comments) Value History N/A 0 EKG N/A 0 Age N/A 0 Risk Factors N/A 0 Troponin N/A 0 Total 0 I personally scribed for HECTOR HERNANDEZ ([email or web address]) on 08/07/25 at 17:21. Electronically submitted by Emir Culp ([email or web address]). I personally scribed for HECTOR HERNANDEZ ([email or web address]) on 08/07/25 at 17:45. Electronically submitted by Emir Culp ([email or web address]). HECTOR HERNANDEZ Aug 07, 2025 17:21
[2025-08-07] MEDS: CLINDAMYCIN 600MG IV 50 ML IV ONE (17:36)
[2025-08-07 17:43] LABS: Hematocrit 39.5 % (41.0-53.0); Hemoglobin 13.5 g/dL (13.5-17.5); Mean Corpuscular Hemoglobin 29.2 pg (28.0-32.0); Mean Corpuscular Volume 85.8 fL (80.0-100.0); Nucleated Red Blood Cells % 0.0 %
[2025-08-07 17:53] LABS: Chloride 98 mmol/L (98-107)
[2025-08-07 17:54] LABS: Anion Gap 12 (5-15)
[2025-08-07 17:57] LABS: Calcium 8.7 mg/dL (8.7-10.4); Carbon Dioxide 20 mmol/L (20-31); Potassium 3.1 mmol/L (3.5-5.1); Sodium 130 mmol/L (136-145)
[2025-08-07 17:59] LABS: BUN/Creatinine Ratio 18.0 (10.0-20.0)
[2025-08-07 18:00] LABS: Blood Urea Nitrogen 24 mg/dL (9-23); Glucose 163 mg/dL (74-106)
--- NOTE | 2025-08-07 18:09 | ECG ---
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
[2025-08-07] MEDS: POTASSIUM CHL 20 Meq TABLET PO ONE (18:54)
[2025-08-07 19:00] LABS: COVID19 ANTIGEN SOFIA FIA NEGATIVE (NEGATIVE); Rapid Strep A Screen-Throat Negative
[2025-08-07] MEDS ORDERED: ONDANSETRON HCL 4 MG/2 ML VIAL IV PRN (19:30)
[2025-08-07] MEDS ORDERED: DEXTROSE (50%) 50ML SYRG IV PRN (19:30)
[2025-08-07] MEDS: SODIUM CHLORIDE 0.9% 1,000 ML IV SCH (19:30)
[2025-08-07] MEDS ORDERED: HYDROcodone-ACET 5/325MG TAB PO PRN (19:30)
[2025-08-07] MEDS ORDERED: DOCUSATE SOD 100 MG CAP PO PRN (19:30)
[2025-08-07] MEDS ORDERED: ACETAMINOPHEN 325 MG TAB PO PRN (19:30)
[2025-08-07 19:56] LABS: Urine Protein, UAD Negative (Negative); Urine WBC Clumps PRESENT /hpf (None Seen)
[2025-08-07 20:04] LABS: Amphetamine Screen, Urine Neg (NEGATIVE); Barbiturate Scree,Urine Neg (NEGATIVE); Benzodiazephine Screen, Urine Neg (NEGATIVE); Cannabinoid Screen, Urine Neg (NEGATIVE); Cocaine Screen, Urine Neg (NEGATIVE); Opiate Scree,Urine Neg (NEGATIVE); Phencyclidine Screen, Urine Neg (NEGATIVE)
--- NOTE | 2025-08-07 21:21 | DVHHP2 ---
History of Present Illness Reason for Visit: Hypokalemia History of Present Illness The patient is a 70-year-old male with past medical history of liver disease, hypertension, and diabetes mellitus who presented to [facility] ED with complaint of sore throat. Patient reports that he has been experiencing nasal congestion associated with cough, fever, and hiccups for the past 7 days, Patient was seen and evaluated in the ED, laboratory data shows WBC 15.4, platelets 157, sodium 130, potassium 3.1, BUN 24, creatinine 1.33, glucose 163, calcium 8.7, lactic acid 1.5, troponin 10, blood pressure 109/60, heart rate 88, temperature 100.6 F trending down to 98.2 F, O2 saturation 98% on room air. Ch est x-ray show no acute cardiopulmonary disease. Please see medication orders section in the computer. On my assessment, patient denied chest pain, no diaphoresis, headache, dizziness, shortness of breaths, no nausea, vomiting, fever, no chills. Patient was admitted for further evaluation and medical management. Past Medical History DM, HTN, Liver disease Past Surgical History Denies all surgeries Family History Reviewed, noncontributory to the management of this case. Past Social History The patient lives at home, smokes cigarettes, drinks alcohol heavily, uses cocaine. Review of Systems Constitutional: Yes: Weakness; No: Fever, Chills, Sweats, Malaise, Other Eyes: No: Pain, Vision change, Conjunctivae inflammation, Eyelid inflammation, Other, Redness ENT: Nose congestion, Throat pain, Other (Sore throat); No: Ear pain, Ear discharge, Nose pain, Nose discharge, Mouth pain, Mouth swelling, Throat swelling Respiratory: No: Cough, Dry, Shortness of breath, SOB with excertion, Wheezing, Hemoptysis, Pleuritic Pain, Sputum, Wheezing, Other Cardiovascular: No: Chest Pain, Palpitations, Orthopnea, Paroxysmal Noc. Dyspnea, Edema, Lt Headedness, Other Gastrointestinal: No: Nausea, Vomiting, Abdominal Pain, Diarrhea, Constipation, Melena, Hematochezia, Other Genitourinary: No Dysuria, No Frequency, No Incontinence, No Hematuria, No Retention, No Other Musculoskeletal: No: other, neck pain, shoulder pain, arm pain, back pain, hand pain, leg pain, foot pain Skin: No: Rash, Lesions, Jaundice, Bruising, Other Neurological: No: Weakness, Numbness, Incoordination, Change in speech, Confusion, Seizures, Other Allergies: Coded Allergies: NO KNOWN ALLERGIES (Unverified , 01/15/24) Medications Current Medications Medications Dose Ordered Sig/Sulma Route Start Time Stop Time Status Last Admin Dose Admin Clindamycin Phosphate 50 ml @ 50 mls/hr Q8HR IV 08/08/25 06:00 Ceftriaxone Sodium 50 ml @ 100 mls/hr DAILY@09 IV 08/08/25 09:00 Diagnostic Test (Pha) 1 strip ACHS 08/07/25 22:00 Insulin Human Regular HS SC 08/07/25 22:00 Insulin Human Regular AC SC 08/08/25 07:00 Dextrose 50 ml UD PRN IV 08/07/25 19:30 Sodium Chloride 1,000 ml @ 60 mls/hr [id number] IV 08/07/25 19:30 Acetaminophen/ Hydrocodone Bitart 1 tab Q4HP PRN PO 08/07/25 19:30 Ondansetron HCl 4 mg Q4HP PRN IV 08/07/25 19:30 Docusate Sodium 100 mg BIDPRN PRN PO 08/07/25 19:30 Acetaminophen 650 mg Q6HP PRN PO 08/07/25 19:30 Thiamine HCl 100 mg DAILY PO 08/08/25 10:00 Folic Acid 1 mg DAILY PO 08/08/25 10:00 Multivitamins 1 tab DAILY PO 08/08/25 10:00 Exam Vital Signs Vital Signs Date Time Temp Pulse Resp B/P (MAP) Pulse Ox O2 Delivery O2 Flow Rate FiO2 08/07/25 19:30 97.9 87 17 100/52 (68) 98 97.9 08/07/25 17:16 Room Air* 0 21 General Appearance: Alert, Oriented X3, Cooperative, No acute distress HEENT: Atraumatic, PERRLA, EOMI, Mucous membr. moist/pink Respiratory: Normal air movement Cardiovascular: Regular rate, Normal S1, Normal S2, No murmurs Abdominal: Normal bowel sounds, Soft, No tenderness, No hepatospenomegaly, No masses Extremities: No clubbing, No cyanosis, No edema, Normal pulses, No tenderness/swelling Skin: No rashes, No significant lesion Neuro: Normal speech, Normal tone, Sensation intact, Cranial nerves 3-12 NL, Reflexes 2+, Other (Generalized weakness) Psych/Mental Status: Mental status NL, Mood NL Labs/Xrays Labs Test 08/07/25 18:30 08/07/25 17:45 08/07/25 17:20 Range/Units Urine Color Colorless Yellow Urine Clarity Turbid H Clear Urine pH 5.5 5.0-9.0 Urine Specific [place] 1.003 1.001-1.035 Urine Protein Negative Negative Urine Ketones Negative Negative Urine Blood 1+ H Negative /uL Urine Nitrite Negative Negative Urine Bilirubin Negative Negative Urine Urobilinogen Normal Negative mg/dL Urine Leukocyte Esterase 3+ Negative /uL Urine RBC 2 0 - 3 /hpf Urine WBC Clumps Present None Seen /hpf Urine Microscopic WBC 235 H 0-3 /HPF Urine Squamous Epithelial Cells None seen <5 /hpf Urine Bacteria Few H None Seen /hpf Urine Glucose 4+ H Normal mg/dL Urine Opiates Screen Neg NEGATIVE Urine Fentanyl Screen Neg NEGATIVE Urine Barbiturates Screen Neg NEGATIVE Urine Phencyclidine Screen Neg NEGATIVE Urine Amphetamines Screen Neg NEGATIVE Urine Benzodiazepines Screen Neg NEGATIVE Urine Cocaine Screen Neg NEGATIVE Urine Cannabinoids Screen Neg NEGATIVE Influenza Type A Antigen Negative Negative Influenza Type B Antigen Negative Negative SARS-CoV-2 Antigen (Rapid) Negative NEGATIVE Group A Streptococcus Rapid Negative White Blood Count 15.4 H 4.4-10.8 10^3/uL Red Blood Count 4.61 4.5-5.90 10^6/uL Hemoglobin 13.5 13.5-17.5 g/dL Hematocrit 39.5 L 41.0-53.0 % Mean Corpuscular Volume 85.8 80.0-100.0 fL Mean Corpuscular Hemoglobin 29.2 28.0-32.0 pg Mean Corpuscular Hemoglobin Concent 34.0 32.0-36.0 g/dL Red Cell Distribution Width 14.7 H 11.8-14.3 % Platelet Count 157 140-450 10^3/uL Mean Platelet Volume 7.8 6.9-10.8 fL Neutrophils (%) (Auto) 89.8 H 37.0-80.0 % Lymphocytes (%) (Auto) 4.2 L 10.0-50.0 % Monocytes (%) (Auto) 5.6 0.0-12.0 % Eosinophils (%) (Auto) 0.1 0.0-7.0 % Basophils (%) (Auto) 0.3 0.0-2.0 % Neutrophils # (Auto) 13.9 H 1.6-8.6 10 ^3/uL Lymphocytes # (Auto) 0.6 0.4-5.4 10 ^3/uL Monocytes # (Auto) 0.9 0-1.3 10 ^3/uL Eosinophils # (Auto) 0 0-0.8 10 ^3/uL Basophils # (Auto) 0 0-0.2 10 ^3/uL Nucleated Red Blood Cells 0.0 % Sodium Level 130 L 136-145 mmol/L Potassium Level 3.1 L 3.5-5.1 mmol/L Chloride Level 98 98-107 mmol/L Carbon Dioxide Level 20 20-31 mmol/L Anion Gap 12 5-15 Blood Urea Nitrogen 24 H 9-23 mg/dL Creatinine 1.33 H 0.700-1.30 mg/dL Glomerular Filtration Rate Calc 58 >90 mL/min BUN/Creatinine Ratio 18.0 10.0-20.0 Serum Glucose 163 H 74-106 mg/dL Lactic Acid Level 1.5 0.4-2.0 mmol/L Calcium Level 8.7 8.7-10.4 mg/dL Troponin I High Sensitivity 10 </=54 ng/L [id number] UNIT: [id number] : 1955 LOC: ER ROOM / BED: / AGE / SEX: 70 / M ADM STATUS: REG ER SERVICE 1523 ORDERING PHYSICIAN: HECTOR HERNANDEZ PROCEDURE(s): CXR2 - CHEST TWO VIEWS ROUTINE REASON: COUGH ORDER NUMBER(s): [id number], ACCESSION NUMBER(s): [id number] CHEST TWO VIEWS ROUTINE CLINICAL HISTORY: COUGH COMPARISON: None TECHNIQUE: Frontal and lateral view of the chest was obtained FINDINGS: Lines and Tubes: None Lungs: No focal consolidation. Pleura: No effusion. No pneumothorax. Cardiomediastinal contours: Unremarkable Bones: Bony spondylosis throughout the thoracic spine. IMPRESSION: 1. No acute cardiopulmonary disease. SEPSIS Sepsis Screen Date sepsis recognized/suspect: Aug 07, 2025 Time Sepsis recognized/suspect: 1715 Recent Procedure: No On Antibiotic Therapy: No Respiratory Rate >20: Yes Heart Rate >90: Yes Temp<36 C (96.8 F) or >38.3 C: No SBP <90 or MAP <65 mmHG: No New Acute Mental Status Change: No Is the patient on CPAP, BIPAP,: No Physician Orders Chest Two Views Routine (08/07/25 15:23) Blood Culture (08/07/25 17:03) Heplock Iv (08/07/25 ) Ceftriaxone 1gm/50ml (Rocephin) (08/08/25 09:00) Glucose Blood (Accu-Chek Comfort Curve T (08/07/25 22:00) Insulin R (Human) (Insulin R) (08/07/25 22:00) Insulin R (Human) (Insulin R) (08/08/25 07:00) Dextrose 50% Syringe (08/07/25 19:30) Allergies (08/07/25 19:16) Code Status (08/07/25 19:16) Sodium Chloride 0.9% (08/07/25 19:30) Oxygen Per Hour (08/07/25 19:16) Hydrocodone-Acet 5/325mg Tab (Mayer 5/32 (08/07/25 19:30) Ondansetron Hcl (Zofran) (08/07/25 19:30) Docusate Sodium Capsule (Colace Capsule) (08/07/25 19:30) Complete Blood Count (08/08/25 04:00) Comprehensive Metabolic Panel (08/08/25 04:00) Condition: Serious (08/07/25 19:16) Acetaminophen Tablet (Tylenol Tablet) (08/07/25 19:30) Bedrest With Bathroom Privileg (08/07/25 19:16) Maintain Bed Rest (08/07/25 19:16) Sequential Compression Device (08/07/25 ) Thiamine Tab (08/08/25 10:00) Folic Acid Tablet (08/08/25 10:00) Multiple Vitamin Tablet (Mvi Tab) (08/08/25 10:00) Clindamycin 600mg Iv (Cleocin Iv) (08/08/25 06:00) Vital Signs Date Time Temp Pulse Resp B/P (MAP) Pulse Ox O2 Delivery O2 Flow Rate FiO2 08/07/25 19:30 97.9 87 17 100/52 (68) 98 97.9 08/07/25 18:45 87 18 109/60 (76) 96 08/07/25 17:45 89 08/07/25 17:34 89 08/07/25 17:16 98.2 92 25 91/54 (66) 96 98.2 08/07/25 17:16 92 25 96 Room Air* 0 21 08/07/25 16:23 99.9 08/07/25 15:23 100.6 08/07/25 15:14 100.6 111 18 148/87 99 100.6 Laboratory Tests Test 08/07/25 17:20 Lactic Acid Level 1.5 mmol/L (0.4-2.0) White Blood Count 15.4 10^3/uL (4.4-10.8) H Medications Medications Dose Ordered Sig/Sulma Route Start Time Stop Time Status Last Admin Dose Admin Acetaminophen 650 mg ONCE ONCE PO 08/07/25 15:30 08/07/25 15:31 DC 08/07/25 15:23 650 MG Ceftriaxone Sodium 1,000 mg ONCE ONCE IM 08/07/25 16:30 08/07/25 16:31 DC 08/07/25 16:36 1,000 MG Clindamycin Phosphate 50 ml @ 50 mls/hr ONCE ONCE IV 08/07/25 17:30 08/07/25 18:29 DC 08/07/25 17:36 50 MLS/HR Potassium Chloride 40 meq ONCE ONCE PO 08/07/25 18:15 08/07/25 18:16 DC 08/07/25 18:54 40 MEQ Sodium Chloride 2,000 ml @ 1,000 mls/hr Q2H ONCE IV 08/07/25 17:15 08/07/25 19:14 DC 08/07/25 17:21 1,000 MLS/HR Assessment/Plan Assessment/Plan Acute tonsillitis Hyperglycemia Acute renal injury Electrolyte imbalance Leukocytosis, unspecified Plan 1. Admit to telemetry unit 2. Breathing treatment 3. Pain control management 4. IV antibiotic management 5. Management of fluids and electrolytes 6. Consultation for hospitalist 7. Diagnostic test chest x-ray 8. DVT prophylaxis-on SCDs 9. Repeat labs CBC, CMP in a.m. 10. Home medication reviewed and reconciled 11. Continue with current medical management 12. Treatment plan discussed with patient and RN. Patient verbalized understanding. Plan discussed with: Patient, Other (RN) My Orders Orders - DOROTHEA MOORE DNP Procedure Category Date Status Time Ceftriaxone 1gm/50ml PHA 08/08/25 In Process (Rocephin) 09:00 Glucose Blood PHA 08/07/25 In Process (Accu-Chek Comfort 22:00 Insulin R (Human) PHA 08/07/25 In Process (Insulin R) 22:00 Insulin R (Human) PHA 08/08/25 In Process (Insulin R) 07:00 Dextrose 50% Syringe PHA 08/07/25 In Process 19:30 Allergies EHSAN 08/07/25 In Process 19:16 Code Status CODE 08/07/25 Transmitted 19:16 Sodium Chloride 0.9% PHA 08/07/25 In Process 19:30 Oxygen Per Hour RT 08/07/25 Transmitted 19:16 Hydrocodone-Acet PHA 08/07/25 In Process 5/325mg Tab (Mayer 19:30 Ondansetron Hcl PHA 08/07/25 In Process (Zofran) 19:30 Docusate Sodium PHA 08/07/25 In Process Capsule (Colace 19:30 Complete Blood Count LAB 08/08/25 Verified 04:00 Comprehensive LAB 08/08/25 Verified Metabolic Panel 04:00 Condition: Serious EHSAN 08/07/25 In Process 19:16 Acetaminophen Tablet PHA 08/07/25 In Process (Tylenol Tablet) 19:30 Bedrest With Bathroom EHSAN 08/07/25 In Process Privileg 19:16 Maintain Bed Rest EHSAN 08/07/25 In Process 19:16 Sequential EHSAN 08/07/25 In Process Compression Device Thiamine Tab PHA 08/08/25 In Process 10:00 Folic Acid Tablet PHA 08/08/25 In Process 10:00 Multiple Vitamin PHA 08/08/25 In Process Tablet (Mvi Tab) 10:00 Clindamycin 600mg Iv PHA 08/08/25 In Process (Cleocin Iv) 06:00 Problem List: (1) Acute tonsillitis (2) Hyperglycemia (3) Acute renal injury (4) Electrolyte imbalance (5) Leukocytosis, unspecified Date of Service: Aug 07, 2025 Billing Provider: DOROTHEA MOORE DNP Common Visit Codes: [id number] INP/OBS CARE (HIGH) DOROTHEA MOORE DNP Aug 07, 2025 21:21
[2025-08-07] MEDS ORDERED: MORPHINE SULFATE INJ 2 MG/ml SYRG IV PRN (21:30)
[2025-08-07] MEDS ORDERED: NITROGLYCERIN 0.4 MG SL TAB SL PRN (21:30)
[2025-08-07] MEDS: InsuLIN REG 1unit/0.01ml Soln (100units/ml) SC SCH (22:26)
[2025-08-07] MEDS: ACCU-CHEK COMFORT CURVE STRIP VI SCH (22:26)
[2025-08-08] VITALS (9 sets, daily range): BP systolic 114–129; BP diastolic 75–83; PULSE 84–91; RESP 16–20; TEMP 97.2–98.1; O2SAT 97–99
[2025-08-08] MEDS: InsuLIN REG 1unit/0.01ml Soln (100units/ml) SC SCH (05:38)
[2025-08-08] MEDS: CLINDAMYCIN 600MG IV 50 ML IV SCH (05:40)
[2025-08-08 06:29] LABS: Hematocrit 39.0 % (41.0-53.0); Hemoglobin 13.5 g/dL (13.5-17.5); Mean Corpuscular Hemoglobin 29.8 pg (28.0-32.0); Mean Corpuscular Volume 86.0 fL (80.0-100.0); Nucleated Red Blood Cells % 0.0 %
[2025-08-08 06:48] LABS: Alanine Aminotransferase 20 U/L (7-40); Albumin 3.7 g/dL (3.2-4.8); Anion Gap 13 (5-15); BUN/Creatinine Ratio 20.4 (10.0-20.0); Bilirubin, Total 0.7 mg/dL (0.2-1.0); Blood Urea Nitrogen 19 mg/dL (9-23); Calcium 9.0 mg/dL (8.7-10.4); Chloride 106 mmol/L (98-107); Potassium 3.9 mmol/L (3.5-5.1); Sodium 139 mmol/L (136-145); Total Protein 7.9 g/dL (5.7-8.2)
[2025-08-08 06:49] LABS: Alkaline Phosphatase 132 U/L (46-116); Carbon Dioxide 20 mmol/L (20-31); Glucose 171 mg/dL (74-106)
[2025-08-08] MEDS: THIAMINE HCL 100 MG TAB PO SCH (08:49)
[2025-08-08] MEDS: FOLIC ACID 1 MG TAB PO SCH (08:50)
[2025-08-08] MEDS: MULTIPLE VITAMIN TAB PO SCH (08:50)
--- NOTE | 2025-08-08 14:24 | DVHPN2 ---
Subjective The patient seen and examined at bedside. No complains today. Reviewed: Care Plan, H&P, Labs, Medications, Previous Orders, Radiology Changes from previous H/P or p: No Changes Eyes: No Pain, No Vision change, No Conjunctivae inflammation, No Eyelid inflammation, No Other, No Redness ENT: No Ear pain, No Ear discharge, No Nose pain, No Nose discharge; Nose congestion; No Mouth pain, No Mouth swelling; Throat pain; No Throat swelling; O ther (Sore throat) Cardiovascular: No Chest Pain, No Palpitations, No Orthopnea, No Paroxysmal Noc. Dyspnea, No Edema, No Lt Headedness, No Other Respiratory: No Cough, No Dry, No Shortness of breath, No SOB with excertion, No Wheezing, No Hemoptysis, No Pleuritic Pain, No Sputum, No Other Gastrointestinal: No Nausea, No Vomiting, No Abdominal Pain, No Diarrhea, No Constipation, No Melena, No Hematochezia, No Other Genitourinary: No Dysuria, No Frequency, No Incontinence, No Hematuria, No Retention, No Other Musculoskeletal: No other, No neck pain, No shoulder pain, No arm pain, No back pain, No hand pain, No leg pain, No foot pain Skin: No Rash, No Lesions, No Jaundice, No Bruising, No Other Objective Vitals Vital Signs Date Time Temp Pulse Resp B/P (MAP) Pulse Ox O2 Delivery O2 Flow Rate FiO2 08/08/25 12:39 98.1 90 16 128/83 (98) 97 98.1 08/08/25 07:30 Room Air* 0 21 Intake/Output Intake and Output 08/08/25 07:00 Intake Total 2050 ml Balance 2050 ml Intake Oral 0 ml IV Total 2050 ml # Voids 1 General Appearance: Alert, Oriented X3, Cooperative, No acute distress HEENT: Atraumatic, PERRLA, EOMI, Mucous membr. moist/pink Neck: Supple Lungs: Clear to auscultation, Normal air movement Cardiovascular: Regular rate, Normal S1, Normal S2, No murmurs, Gallops, Rubs Abdomen: Normal bowel sounds, Soft, No tenderness Neuro: Cranial nerves 3-12 NL Psych/Mental Status: Mental status NL, Mood NL Medications Current Medications Medications Dose Ordered Sig/Sulma Route Start Time Stop Time Status Last Admin Dose Admin Clindamycin Phosphate 50 ml @ 50 mls/hr Q8HR IV 08/08/25 06:00 08/08/25 12:59 50 MLS/HR Ceftriaxone Sodium 50 ml @ 100 mls/hr DAILY@09 IV 08/08/25 09:00 08/08/25 08:48 100 MLS/HR Diagnostic Test (Pha) 1 strip ACHS 08/07/25 22:00 08/08/25 12:19 1 STRIP Insulin Human Regular HS SC 08/07/25 22:00 08/07/25 22:26 3 UNITS Insulin Human Regular AC SC 08/08/25 07:00 08/08/25 12:20 6 UNITS Dextrose 50 ml UD PRN IV 08/07/25 19:30 Sodium Chloride 1,000 ml @ 60 mls/hr [id number] IV 08/07/25 19:30 08/08/25 12:20 60 MLS/HR Acetaminophen/ Hydrocodone Bitart 1 tab Q4HP PRN PO 08/07/25 19:30 Ondansetron HCl 4 mg Q4HP PRN IV 08/07/25 19:30 Docusate Sodium 100 mg BIDPRN PRN PO 08/07/25 19:30 Acetaminophen 650 mg Q6HP PRN PO 08/07/25 19:30 Thiamine HCl 100 mg DAILY PO 08/08/25 10:00 08/08/25 08:49 100 MG Folic Acid 1 mg DAILY PO 08/08/25 10:00 08/08/25 08:50 1 MG Multivitamins 1 tab DAILY PO 08/08/25 10:00 08/08/25 08:50 1 TAB Nitroglycerin 0.4 mg Q5MINP PRN SL 08/07/25 21:30 Morphine Sulfate 2 mg Q30M PRN IV 08/07/25 21:30 Laboratory Results Laboratory Tests 08/08/25 05:40 Chemistry Test 08/07/25 17:20 08/08/25 05:40 Calcium Level 8.7 mg/dL (8.7-10.4) 9.0 mg/dL (8.7-10.4) Albumin 3.7 g/dL (3.2-4.8) Total Protein 7.9 g/dL (5.7-8.2) LFT Test 08/08/25 05:40 Alanine Aminotransferase (ALT) 20 U/L (7-40) Alkaline Phosphatase 132 U/L (46-116) H Aspartate Amino Transferase (AST) 20 U/L (13-40) Total Bilirubin 0.7 mg/dL (0.2-1.0) HgA1c, TSH Test 08/08/25 05:40 Hemoglobin A1c 6.5 % A1C (<5.7) H Urinalysis Test 08/07/25 18:30 Urine Color Colorless (Yellow) Urine Clarity Turbid (Clear) H Urine pH 5.5 (5.0-9.0) Urine Specific [place] 1.003 (1.001-1.035) Urine Protein Negative (Negative) Urine Ketones Negative (Negative) Urine Blood 1+ /uL (Negative) H Urine Nitrite Negative (Negative) Urine Bilirubin Negative (Negative) Urine Urobilinogen Normal mg/dL (Negative) Urine Leukocyte Esterase 3+ /uL (Negative) Urine RBC 2 /hpf (0 - 3) Urine WBC Clumps Present /hpf (None Seen) Urine Microscopic WBC 235 /HPF (0-3) H Urine Squamous Epithelial Cells None seen /hpf (<5) Urine Bacteria Few /hpf (None Seen) H Urine Glucose 4+ mg/dL (Normal) H Microbiology Microbiology Date/Time Source Procedure Growth Status 08/07/25 17:45 Throat Nose/Throat Culture - Preliminary Resulted Labs and/or images reviewed: Labs reviewed by me Assessment/Plan Assessment/Plan Acute tonsillitis Hyperglycemia Acute renal injury Electrolyte imbalance Leukocytosis, unspecified Continuing current management. Continuing with IV antibiotic. We will monitor the hypoglycemia. Continuing IV fluid. Replace electrolytes as needed. We will monitor WBC. This medical document was created using an electronic medical record system with [employer] direct computerized dictation system. Although this document has been carefully reviewed, there may still be some phonetic and typographical errors. These areas are purely typographical due to imperfections of the software programs, and do not reflect any compromise in the patient's medical care. Plan discussed with: Patient Date of Service: Aug 08, 2025 Billing Provider: SHIRLEY HOGAN MD Common Visit Codes: [id number] INP/OBS CARE(HIGH) SHIRLEY HOGAN MD Aug 08, 2025 14:24
[2025-08-09] VITALS (7 sets, daily range): BP systolic 112–158; BP diastolic 74–97; PULSE 78–89; RESP 18–20; TEMP 97.4–98.3; O2SAT 97–99
--- NOTE | 2025-08-09 15:05 | DVHPN2 ---
Subjective The patient seen and examined at bedside. No complains today. Reviewed: Care Plan, H&P, Labs, Medications, Previous Orders, Radiology Eyes: No Pain, No Vision change, No Conjunctivae inflammation, No Eyelid inflammation, No Other, No Redness ENT: No Ear pain, No Ear discharge, No Nose pain, No Nose discharge; Nose congestion; No Mouth pain, No Mouth swelling; Throat pain; No Throat swelling; O ther (Sore throat) Cardiovascular: No Chest Pain, No Palpitations, No Orthopnea, No Paroxysmal Noc. Dyspnea, No Edema, No Lt Headedness, No Other Respiratory: No Cough, No Dry, No Shortness of breath, No SOB with excertion, No Wheezing, No Hemoptysis, No Pleuritic Pain, No Sputum, No Other Gastrointestinal: No Nausea, No Vomiting, No Abdominal Pain, No Diarrhea, No Constipation, No Melena, No Hematochezia, No Other Genitourinary: No Dysuria, No Frequency, No Incontinence, No Hematuria, No Retention, No Other Musculoskeletal: No other, No neck pain, No shoulder pain, No arm pain, No back pain, No hand pain, No leg pain, No foot pain Skin: No Rash, No Lesions, No Jaundice, No Bruising, No Other Objective Vitals Vital Signs Date Time Temp Pulse Resp B/P (MAP) Pulse Ox O2 Delivery O2 Flow Rate FiO2 08/09/25 12:13 97.5 82 20 139/84 (102) 98 97.5 08/09/25 07:30 Room Air* 0 21 Intake/Output Intake and Output 08/09/25 07:00 Intake Total 2450 ml Balance 2450 ml Intake Oral 1300 ml IV Total 1150 ml # Voids 4 General Appearance: Alert, Oriented X3, Cooperative, No acute distress HEENT: Atraumatic, PERRLA, EOMI, Mucous membr. moist/pink Neck: Supple Lungs: Clear to auscultation, Normal air movement Cardiovascular: Regular rate, Normal S1, Normal S2, No murmurs, Gallops, Rubs Abdomen: Normal bowel sounds, Soft, No tenderness Neuro: Cranial nerves 3-12 NL Psych/Mental Status: Mental status NL, Mood NL Medications Current Medications Medications Dose Ordered Sig/Sulma Route Start Time Stop Time Status Last Admin Dose Admin Clindamycin Phosphate 50 ml @ 50 mls/hr Q8HR IV 08/08/25 06:00 08/09/25 13:49 50 MLS/HR Ceftriaxone Sodium 50 ml @ 100 mls/hr DAILY@09 IV 08/08/25 09:00 08/09/25 07:58 100 MLS/HR Diagnostic Test (Pha) 1 strip ACHS 08/07/25 22:00 08/09/25 11:13 1 STRIP Insulin Human Regular HS SC 08/07/25 22:00 08/08/25 22:05 4 UNITS Insulin Human Regular AC SC 08/08/25 07:00 08/09/25 11:13 6 UNITS Dextrose 50 ml UD PRN IV 08/07/25 19:30 Sodium Chloride 1,000 ml @ 60 mls/hr [id number] IV 08/07/25 19:30 08/08/25 12:20 60 MLS/HR Acetaminophen/ Hydrocodone Bitart 1 tab Q4HP PRN PO 08/07/25 19:30 Ondansetron HCl 4 mg Q4HP PRN IV 08/07/25 19:30 Docusate Sodium 100 mg BIDPRN PRN PO 08/07/25 19:30 Acetaminophen 650 mg Q6HP PRN PO 08/07/25 19:30 Thiamine HCl 100 mg DAILY PO 08/08/25 10:00 08/09/25 07:57 100 MG Folic Acid 1 mg DAILY PO 08/08/25 10:00 08/09/25 07:57 1 MG Multivitamins 1 tab DAILY PO 08/08/25 10:00 08/09/25 07:57 1 TAB Nitroglycerin 0.4 mg Q5MINP PRN SL 08/07/25 21:30 Morphine Sulfate 2 mg Q30M PRN IV 08/07/25 21:30 Laboratory Results Laboratory Tests 08/08/25 05:40 Urinalysis Test 08/07/25 18:30 Urine Color Colorless (Yellow) Urine Clarity Turbid (Clear) H Urine pH 5.5 (5.0-9.0) Urine Specific [place] 1.003 (1.001-1.035) Urine Protein Negative (Negative) Urine Ketones Negative (Negative) Urine Blood 1+ /uL (Negative) H Urine Nitrite Negative (Negative) Urine Bilirubin Negative (Negative) Urine Urobilinogen Normal mg/dL (Negative) Urine Leukocyte Esterase 3+ /uL (Negative) Urine RBC 2 /hpf (0 - 3) Urine WBC Clumps Present /hpf (None Seen) Urine Microscopic WBC 235 /HPF (0-3) H Urine Squamous Epithelial Cells None seen /hpf (<5) Urine Bacteria Few /hpf (None Seen) H Urine Glucose 4+ mg/dL (Normal) H Microbiology Microbiology Date/Time Source Procedure Growth Status 08/07/25 17:45 Throat Nose/Throat Culture - Preliminary Resulted 08/07/25 17:26 Blood Blood Culture - Preliminary NO GROWTH AFTER 24 HOURS OF INCUBATION. Resulted Assessment/Plan Assessment/Plan Acute tonsillitis Hyperglycemia Acute renal injury Electrolyte imbalance Leukocytosis, unspecified Continuing current management. Continuing with IV antibiotic. We will monitor the hypoglycemia. Continuing IV fluid. Replace electrolytes as needed. We will monitor WBC. This medical document was created using an electronic medical record system with [employer] direct computerized dictation system. Although this document has been carefully reviewed, there may still be some phonetic and typographical errors. These areas are purely typographical due to imperfections of the software programs, and do not reflect any compromise in the patient's medical care. My Orders Orders - SHIRLEY HOGAN MD Procedure Category Date Status Time Consistent DIET 08/08/25 Transmitted Carb(Ccho)Diabetes Dinner SHIRLEY HOGAN MD Aug 09, 2025 15:05
[2025-08-09] MEDS ORDERED: AUG875T PO (16:20)
--- NOTE | 2025-08-09 16:20 | DVHDS2 ---
Discharge Summary Date of Admission Aug 07, 2025 at 21:20 Date of Discharge: Aug 09, 2025 Admitting Diagnosis Acute tonsillitis Hyperglycemia Acute renal injury Electrolyte imbalance Leukocytosis, unspecified Labs/Diagnostic Data: Laboratory Results Test 08/09/25 10:45 08/08/25 05:40 08/07/25 18:30 08/07/25 17:45 POC Glucose 247 mg/dl (70-106) White Blood Count 7.6 10^3/uL (4.4-10.8) Red Blood Count 4.54 10^6/uL (4.5-5.90) Hemoglobin 13.5 g/dL (13.5-17.5) Hematocrit 39.0 % (41.0-53.0) Mean Corpuscular Volume 86.0 fL (80.0-100.0) Mean Corpuscular Hemoglobin 29.8 pg (28.0-32.0) Mean Corpuscular Hemoglobin Concent 34.6 g/dL (32.0-36.0) Red Cell Distribution Width 14.4 % (11.8-14.3) Platelet Count 129 10^3/uL (140-450) Mean Platelet Volume 8.2 fL (6.9-10.8) Neutrophils (%) (Auto) 93.7 % (37.0-80.0) Lymphocytes (%) (Auto) 5.2 % (10.0-50.0) Monocytes (%) (Auto) 1.1 % (0.0-12.0) Eosinophils (%) (Auto) 0.0 % (0.0-7.0) Basophils (%) (Auto) 0.0 % (0.0-2.0) Neutrophils # (Auto) 7.1 10 ^3/uL (1.6-8.6) Lymphocytes # (Auto) 0.4 10 ^3/uL (0.4-5.4) Monocytes # (Auto) 0.1 10 ^3/uL (0-1.3) Eosinophils # (Auto) 0 10 ^3/uL (0-0.8) Basophils # (Auto) 0 10 ^3/uL (0-0.2) Nucleated Red Blood Cells 0.0 % Sodium Level 139 mmol/L (136-145) Potassium Level 3.9 mmol/L (3.5-5.1) Chloride Level 106 mmol/L (98-107) Carbon Dioxide Level 20 mmol/L (20-31) Anion Gap 13 (5-15) Blood Urea Nitrogen 19 mg/dL (9-23) Creatinine 0.93 mg/dL (0.700-1.30) Glomerular Filtration Rate Calc 89 mL/min (>90) BUN/Creatinine Ratio 20.4 (10.0-20.0) Serum Glucose 171 mg/dL (74-106) Hemoglobin A1c 6.5 % A1C (<5.7) Calcium Level 9.0 mg/dL (8.7-10.4) Total Bilirubin 0.7 mg/dL (0.2-1.0) Aspartate Amino Transferase (AST) 20 U/L (13-40) Alanine Aminotransferase (ALT) 20 U/L (7-40) Alkaline Phosphatase 132 U/L (46-116) Total Protein 7.9 g/dL (5.7-8.2) Albumin 3.7 g/dL (3.2-4.8) Urine Color Colorless (Yellow) Urine Clarity Turbid (Clear) Urine pH 5.5 (5.0-9.0) Urine Specific [place] 1.003 (1.001-1.035) Urine Protein Negative (Negative) Urine Ketones Negative (Negative) Urine Blood 1+ /uL (Negative) Urine Nitrite Negative (Negative) Urine Bilirubin Negative (Negative) Urine Urobilinogen Normal mg/dL (Negative) Urine Leukocyte Esterase 3+ /uL (Negative) Urine RBC 2 /hpf (0 - 3) Urine WBC Clumps Present /hpf (None Seen) Urine Microscopic WBC 235 /HPF (0-3) Urine Squamous Epithelial Cells None seen /hpf (<5) Urine Bacteria Few /hpf (None Seen) Urine Glucose 4+ mg/dL (Normal) Urine Opiates Screen Neg (NEGATIVE) Urine Fentanyl Screen Neg (NEGATIVE) Urine Barbiturates Screen Neg (NEGATIVE) Urine Phencyclidine Screen Neg (NEGATIVE) Urine Amphetamines Screen Neg (NEGATIVE) Urine Benzodiazepines Screen Neg (NEGATIVE) Urine Cocaine Screen Neg (NEGATIVE) Urine Cannabinoids Screen Neg (NEGATIVE) Influenza Type A Antigen Negative (Negative) Influenza Type B Antigen Negative (Negative) SARS-CoV-2 Antigen (Rapid) Negative (NEGATIVE) Group A Streptococcus Rapid Negative Test 08/07/25 17:20 Lactic Acid Level 1.5 mmol/L (0.4-2.0) Troponin I High Sensitivity 10 ng/L (</=54) Other Laboratory Tests 08/08/25 05:40 Brief Hx & Hospital Course: This is a 70 years old male with past medical history hypertension, diabetes, liver disease came to emergency department because of sore throat. The patient has been experiencing nasal congestion associated with cough, fever and hiccup for seven days. His temperature in the ER was 100.6. The patient is 98% room air. Chest x-ray showed no acute process. The patient was found to have acute tonsillitis and was treated with IV antibiotic ceftriaxone and clindamycin. The patient doing well today. Sore throat improved. COVID test is negative. Influenza also negative. The patient will be discharged home today. Advised the patient to follow up with primary care physician 1-2 weeks. Activity as tolerated. Diet per home diet. The patient will continuing Augmentin for seven days twice per day. Physical exam: HEENT: Normocephalic atraumatic pupils equal react to light and accommodation. Extraocular muscles intact, conjunctiva pink, oropharynx moist, no thrush, no exudate. Lymphatic: No lymphadenopathy Cardiovascular exam: S1, S2 was heard. No murmurs, rubs, gallops Lung: Clear on auscultation bilaterally, no wheeze, rale, rhonchi. GI: Abdominal soft, nondistended, nontenderness, positive bowel sounds. Extremity: No crepitus, cyanosis, edema. Pedal pulses present bilateral. Full range of motion. Skin: Normal turgor, no rash. Psych: Alert, oriented x3. Neurology: No focal deficits, cranial nerve II to XII grossly intact. This medical document was created using an electronic medical record system with [employer] direct computerized dictation system. Although this document has been carefully reviewed, there may still be some phonetic and typographical errors. These areas are purely typographical due to imperfections of the software programs, and do not reflect any compromise in the patient's medical care. Condition at Discharge: Stable Final Diagnosis/Problems List Acute tonsillitis Hyperglycemia Acute renal injury Electrolyte imbalance Leukocytosis, unspecified Discharge Disposition: Home Discharge Instruct/Medications Scheduled Amoxicillin & Pot Clavulanate (Augmentin Tablet), 875 MG PO BID Atenolol (Atenolol), 1 TAB PO DAILY Folic Acid (Folic Acid), 1 MG PO DAILY Losartan Potassium (Losartan Potassium), 1 TAB PO DAILY Multiple Vitamin (Mvi Tab), 1 TAB GT DAILY Sulfamethoxazole W/Trimethopri (Bactrim Ds Tablet), 1 TAB PO BID Thiamine HCl (Thiamine Hydrochloride), 100 MG PO DAILY Discharge Statement: "Patient was advised to return to the ER or call 911 if any headaches, dizziness, shortness of breath, chest pain, abdominal pain, bleeding, fevers, or worsening of medical condition. Patient was counseled about treatment plan, medications, possible side effects, patientverbalized understanding. All questions were answered to the best of my ability. This discharge took greater then 30 minutes in planning, reviewing documentation, counseling the patient, and discussing with other team members." ASSESSMENT ASSESSMENT Assessment Date of Service: Aug 09, 2025 Billing Provider: SHIRLEY HOGAN MD Common Visit Codes: 73819-AZB/OBS DISCH DAY >30min SHIRLEY HOGAN MD Aug 09, 2025 16:20
== END 2025-08-09 18:05 | disposition home or self-care (01) | DRG 113 ==
LOC: ER 15:13 → OVERFLOW 21:20 → TELE-CENTR 23:37
PROVIDERS: ADMIT Nurse Practitioner Family; ATTEND Nurse Practitioner Family
DX: J03.90 Acute tonsillitis, unspecified (principal); N17.0 Acute kidney failure with tubular necrosis; N39.0 Urinary tract infection, site not specified; E11.65 Type 2 diabetes mellitus with hyperglycemia; I10 Essential (primary) hypertension; F17.210 Nicotine dependence, cigarettes, uncomplicated; Z20.822 Contact with and (suspected) exposure to COVID-19; E87.6 Hypokalemia
CPT/HCPCS: 36415; 71046; 80048; 80053; 80307; 81001; 82962; 83036; 83605; 84484; 85025; 87040; 87070; 87426; 87804; 87880; 93005; G0378; J0696; J1100; J1815; J3490